=== PATIENT | female | born 1980 ===

== ENCOUNTER 2023-05-10 15:41 | Emergency (ER) | payer MEDICAID ==
[~2023-05-10] VITALS: Ht 157.5 cm; Wt 50.8 kg
[2023-05-10 15:59] VITALS: BP 135/83; PULSE 88; RESP 18; TEMP 97.9; O2SAT 99
--- NOTE | 2023-05-10 16:03 | NUR ---
43YO F BIB FRIEND PRESENTS W/MULTIPLE SYMPTOMS, TINGLING TO LT AND LT LEG SINCE YESTERDAY, CP RADIATING TO LT ARM, PALPITATIONS, TINGLING TO AND BURNIGN SENSATION TO DIFFERENT PARTS OF BODY, DIZZINESS, NAUSEA TODAY, NECK PAIN X 1MTH OFF AND ON. PT STATES SHE HAS BULGING DISKS C 3,4,5 X 5YRS BUT WORSE RECENTLY. PT DENIES VOMITING, FLU SYMPTOMS, URINARY SYMPTOMS, INJURY. NAD NOTED, SAFETY MAINTAINED. CALL LIGHT WITHIN REACH. HX; ANEMIA, CERVICAL BULGING DISK 3,4,5, CHOLESTEROL
[2023-05-10] MEDS ORDERED: ASPIRIN 81 MG TAB.CHEW PO ONE (16:35)
--- NOTE | 2023-05-10 16:42 | NUR ---
X-Ray at bedside.
[2023-05-10 16:54] LABS: BASOPHILS % (AUTO) 0.7 % (0.0-2.0); EOSINOPHILS # (AUTO) 0.1 K/uL (0-0.4); EOSINOPHILS % (AUTO) 1.3 % (0.0-4.0); HEMATOCRIT 36.7 % (36-48); HEMOGLOBIN 12.2 g/dL (12.0-16.0); LYMPHOCYTES # (AUTO) 2.5 K/uL (2.5-16.5); MEAN CORPUSCULAR HEMOGLOBIN 29 pg (27-31); MEAN CORPUSCULAR HGB CONC 33 g/dL (33-37); MEAN CORPUSCULAR VOLUME 87.9 fL (80-94); MONOCYTES # (AUTO) 0.2 K/uL (0.8-1.0); MONOCYTES % (AUTO) 3.6 % (1.7-9.3); NEUTROPHILS # (AUTO) 2.7 K/uL (1.8-7.7); NEUTROPHILS % (AUTO) 48.4 % (42.2-75.2); PLATELET COUNT (AUTO) 371 K/uL (140-450); RED BLOOD CELL COUNT(AUTO) 4.17 MIL/uL (4.20-5.40); RED CELL DISTRIBUTION WIDTH 13.4 % (11.6-13.7); WHITE BLOOD COUNT (AUTO) 5.5 K/uL (4.8-10.8)
[2023-05-10 17:09] LABS: ALBUMIN 3.8 g/dL (3.4-5.0); ANION GAP 12.4 (8-16); CARBON DIOXIDE 26.1 mmol/L (21-32); CREATININE 0.7 mg/dL (0.6-1.3); POTASSIUM 3.5 mmol/L (3.5-5.1); TOTAL BILIRUBIN 0.6 mg/dL (0.0-1.0)
[2023-05-10 18:52] VITALS: O2SAT 98
[2023-05-10] MEDS ORDERED: OMEP20EC11 PO (18:52)
[2023-05-10 19:24] VITALS: BP 121/63; PULSE 78; RESP 15; TEMP 97.6; O2SAT 98
--- NOTE | 2023-05-10 19:24 | NUR ---
Patient discharged with v/s stable. Written and verbal after care instructions given and explained. Patient alert, oriented and verbalized understanding of instructions. Ambulatory with steady gait. All questions addressed prior to discharge. ID band removed. Patient advised to follow up with PMD. Rx of omeprazole given. Patient educated on indication of medication including possible reaction and side effects. Opportunity to ask questions provided and answered.
== END 2023-05-10 19:24 | disposition home or self-care (01) ==
LOC: MED 15:41
DX: R07.9 Chest pain, unspecified (principal); R55 Syncope and collapse; K21.9 Gastro-esophageal reflux disease without esophagitis; Z79.899 Other long term (current) drug therapy
CPT/HCPCS: 36415; 70450; 71045; 80053; 81002; 81025; 83880; 84484; 85025; 93005; 99285